=== PATIENT | female | born 1975 | race Caucasian/White ===

== ENCOUNTER 2016-09-14 12:13 | Emergency (ER) | payer OTHER ==
[2016-09-14] MEDS ORDERED: KETOROLAC TROMETHAMINE 30 MG/ML 1 ML VIAL ONE (12:50)
[2016-09-14] MEDS ORDERED: METOCLOPRAMIDE HCL 5 MG/ML 2ML VIAL ONE (12:50)
[2016-09-14] MEDS ORDERED: DIPHENHYDRAMINE HCL 50 MG/1 ML VIAL ONE (12:50)
[2016-09-14 13:06] LABS: ABSOLUTE NEUTROPHIL COUNT 6.8 K/mm3 (1.8-7.7); BASO % 0.4 % (0.2-1.0); EOS # 0.1 (0.0-0.5); EOS % 1.1 % (0.9-2.9); HEMATOCRIT 35.6 % (37.0-47.0); HEMOGLOBIN 10.4 gm/l (12.0-16.0); IMM NEUT% 0.2 % (0-1); LYMPH # 2.3 (1.0-4.8); LYMPH % 23.6 % (15-45); MEAN CELL VOLUME 78.1 fl (81.0-99.0); MEAN CORPUSCULAR HEMOGLOBIN 22.8 pg (27.0-31.0); MEAN CORPUSCULAR HGB CONC 29.2 g/dl (33.0-37.0); MEAN PLATELET VOLUME 9.9 fl (7.4-10.4); MONO # 0.5 (0.0-0.8); MONO % 5.4 % (4-12); NEUT % 69.3 % (43-75); PLATELET COUNT 381 K/mm3 (130-400)
[2016-09-14 13:13] LABS: ALB/GLOB RATIO 1.1 (>1.0); CALCIUM 9.2 mg/dL (8.6-10.3)
== END 2016-09-14 14:26 | disposition home or self-care (01) ==
LOC: ED 12:13
DX: R51 Headache (principal); R09.89 Other specified symptoms and signs involving the circulatory and respiratory systems; I10 Essential (primary) hypertension; T78.40XA Allergy, unspecified, initial encounter; X58.XXXA Exposure to other specified factors, initial encounter
CPT/HCPCS: 85025; 80053; 84484; 96375 ×2; 99284; 96374; 99283; J1200; J2765; J1885